=== PATIENT | female | born 1950 | race Caucasian/White ===

== ENCOUNTER 2021-09-06 07:46 | Emergency (ER) | payer MEDICARE, OTHER ==
[~2021-09-06] VITALS: Ht 167 cm; Wt 83.9 kg
[2021-09-06] MEDS ORDERED: ROSU40TA23 (08:07)
[2021-09-06] MEDS ORDERED: METF-399 (08:07)
[2021-09-06] MEDS ORDERED: GLIM1TAB4 (08:07)
--- NOTE | 2021-09-06 08:27 | ED Back Pain ---
General Chief Complaint: Back Problems Stated Complaint: BACK PAIN Nursing Triage Note: RIGHT SIDED FLANK PAIN THAT STARTED THIS AM. Source of Information: Patient Exam Limitations: No Limitations (DARIEN MEYER MED STUDENT) History of Present Illness Date Seen by Provider: Sep 06, 2021 Time Seen by Provider: 08:15 Initial Comments Mrs. Holley is a 71yo female with PMH of DM that presents to ED today due to R side back pain. She states that yesterday morning when she got up she noticed she had the pain in her back. It has been intermittent and experienced it in the morning, and then at 1500 and 1900 as well. This morning she was experiencing it again and decided to come in. Rates the pain a 10, and sharp that radiates down the L side of her back and into her groin. Deneis any trauma or strain. She also complains of some incontinence when trying to walk to the bathroom, although denies dysuria or hematuria. 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 no nausea/vomiting. She has only tried some tylenol which hasnt helped much. Pain is a lot worse with moving and positioning. She states she has never had pain like this before, denies history of kidney stones. Denies smoking, drinking, drugs. States she is allergic to penecillin and hydrocodone. 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 (BINA PARRA MD) Allergies and Home Medications Allergies Coded Allergies: Penicillins (Verified Allergy, Severe, HIVES, 09/06/21) hydrocodone (Verified Adverse Reaction, Unknown, UNABLE TO SLEEP, 09/06/21) Patient Home Medication List Home Medication List Reviewed: Yes (BINA PARRA MD) Glimepiride (Glimepiride) 1 Mg Tablet, (Reported) Entered as Reported by: RADHA ESTEVES on 09/06/21806 Last Action: New Order Metformin HCl (Metformin HCl) 1,000 Mg Tablet, (Reported) Entered as Reported by: RADHA ESTEVES on 09/06/21806 Last Action: New Order Rosuvastatin Calcium (Rosuvastatin Calcium) 40 Mg Tablet, (Reported) Entered as Reported by: RADHA ESTEVES on 3/26/22 0807 Last Action: New Order Review of Systems Constitutional: No chills, No fever EENTM: No hearing loss, No vision loss Respiratory: No cough, No short of breath, No wheezing Cardiovascular: No chest pain, No edema, No palpitations Gastrointestinal: No abdominal pain, No constipation, No diarrhea, No melena, No nausea, No vomiting Genitourinary: No dysuria, No hematuria; incontinence; No pain Musculoskeletal: back pain (R side from kidney area down to lower lumbar), joint pain, other (R groin pain) Skin: No lesions, No rash Psychiatric/Neurological: Denies Headache, Denies Numbness (DARIEN MEYER STUDENT) Past Nmrcgjo-Wscchv-Fbmolw Hx Patient Social History Smoking Status: Never a Smoker Substance use?: No Alcohol Use?: No (DARIEN MEYER) Tobacco Use?: No Use of E-Cig and/or Vaping dev: No Substance use?: No Alcohol Use?: No (BINA PARRA MD) Past Medical History Surgeries: Yes Abdominal (Laparoscopic for treatment of endometriosis), CABG, Section, Orthopedic (Hip, shoulder) Respiratory: No Cardiac: Yes Coronary Artery Disease Neurological: No : No Reproductive Disorders: Yes Female Reproductive Disorders: Endometriosis Genitourinary: No Gastrointestinal: No Musculoskeletal: No Endocrine: Yes Diabetes, Non-Insulin dep HEENT: No Cancer: No Psychosocial: No Integumentary: No (BINA PARRA MD) Physical Exam Vital Signs Vital Signs - First Documented 09/06/21 07:55 Temp 36.4 Pulse 67 Resp 16 B/P (MAP) 199/106 (137) Pulse Ox 95 O2 Delivery Room Air (BINA PARRA MD) Vital Signs Capillary Refill : Less Than 3 Seconds (DARIEN MEYER) Height, Weight, BMI Height: '" Weight: lbs. oz. kg; 30.00 BMI Method: General Appearance: WD/WN, Other (appears uncomfortable ) HEENT: PERRL/EOMI, Pharynx Normal, Moist Mucous Membranes Cardiovascular: Regular Rate, Rhythm, No Edema, No Murmur, Normal Peripheral Pulses Respiratory: Chest Non Tender, Lungs Clear, Normal Breath Sounds Peripheral Pulses: 2+ Radial Pulses (R), 2+ Radial Pulses (L) Gastrointestinal: Normal Bowel Sounds, Non Tender, Soft Back: No Vertebral Tenderness, CVA Tenderness (R) Extremity: Non Tender, No Calf Tenderness, No Pedal Edema Neurologic/Psychiatric: Alert, Oriented x3, No Motor/Sensory Deficits Skin: Normal Color, Warm/Dry (BETSY,DARIEN MED STUDENT) Progress/Results/Core Measures Results/Orders Lab Results Laboratory Tests Test 09/06/21 08:35 09/06/21 08:40 Range/Units Urine Color YELLOW Urine Clarity CLEAR Urine pH 5.5 5-9 Urine Specific [place] 1.025 H 1.016-1.022 Urine Protein NEGATIVE NEGATIVE Urine Glucose (UA) NEGATIVE NEGATIVE Urine Ketones NEGATIVE NEGATIVE Urine Nitrite NEGATIVE NEGATIVE Urine Bilirubin NEGATIVE NEGATIVE Urine Urobilinogen 0.2 < = 1.0 MG/DL Urine Leukocyte Esterase NEGATIVE NEGATIVE Urine RBC (Auto) TRACE-I H NEGATIVE Urine RBC NONE /HPF Urine WBC RARE /HPF Urine Squamous Epithelial Cells 0-2 /HPF Urine Crystals NONE /LPF Urine Bacteria TRACE /HPF Urine Casts NONE /LPF Urine Mucus NEGATIVE /LPF Urine Culture Indicated NO White Blood Count 7.0 4.3-11.0 10^3/uL Red Blood Count 4.81 3.80-5.11 10^6/uL Hemoglobin 14.1 11.5-16.0 g/dL Hematocrit 42 35-52 % Mean Corpuscular Volume 87 80-99 fL Mean Corpuscular Hemoglobin 29 25-34 pg Mean Corpuscular Hemoglobin Concent 34 32-36 g/dL Red Cell Distribution Width 13.9 10.0-14.5 % Platelet Count 278 130-400 10^3/uL Mean Platelet Volume 9.6 9.0-12.2 fL Immature Granulocyte % (Auto) 0 % Neutrophils (%) (Auto) 62 42-75 % Lymphocytes (%) (Auto) 27 12-44 % Monocytes (%) (Auto) 9 0-12 % Eosinophils (%) (Auto) 2 0-10 % Basophils (%) (Auto) 1 0-10 % Neutrophils # (Auto) 4.3 1.8-7.8 10^3/uL Lymphocytes # (Auto) 1.9 1.0-4.0 10^3/uL Monocytes # (Auto) 0.6 0.0-1.0 10^3/uL Eosinophils # (Auto) 0.2 0.0-0.3 10^3/uL Basophils # (Auto) 0.1 0.0-0.1 10^3/uL Immature Granulocyte # (Auto) 0.0 0.0-0.1 10^3/uL Sodium Level 140 135-145 MMOL/L Potassium Level 4.0 3.6-5.0 MMOL/L Chloride Level 107 98-107 MMOL/L Carbon Dioxide Level 22 21-32 MMOL/L Anion Gap 11 5-14 MMOL/L Blood Urea Nitrogen 13 7-18 MG/DL Creatinine 0.68 0.60-1.30 MG/DL Estimat Glomerular Filtration Rate 94 BUN/Creatinine Ratio 19 Glucose Level 143 H 70-105 MG/DL Calcium Level 10.2 H 8.5-10.1 MG/DL Corrected Calcium 10.0 8.5-10.1 MG/DL Total Bilirubin 0.5 0.1-1.0 MG/DL Aspartate Amino Transf (AST/SGOT) 19 5-34 U/L Alanine Aminotransferase (ALT/SGPT) 24 0-55 U/L Alkaline Phosphatase 70 40-136 U/L C-Reactive Protein High Sensitivity 0.09 0.00-0.50 MG/DL Total Protein 7.4 6.4-8.2 GM/DL Albumin 4.2 3.2-4.5 GM/DL (BINA PARRA MD) My Orders Orders - BINA PARRA MD Ed Iv/Invasive Line Start (09/06/21 08:22) Lactated Ringers (Lr 1000 Ml Iv Solution (09/06/21 08:30) Cbc With Automated Diff (09/06/21 08:22) Comprehensive Metabolic Panel (09/06/21 08:22) Hs C Reactive Protein (09/06/21 08:22) Ua Culture If Indicated (09/06/21 08:22) Ct Abd/Pelvis Wo(Kidney Stone) (09/06/21 09:18) Ketorolac Injection (Toradol Injection) (09/06/21 11:45) Ct Angio Abdomen/Pelv W (09/06/21 12:54) Iohexol Injection (Omnipaque 350 Mg/Ml 1 (09/06/21 13:30) Ns (Ivpb) (Sodium Chloride 0.9% Ivpb Bag (09/06/21 13:30) Sodium Chloride Flush (Catheter Flush Sy (09/06/21 13:30) (BINA PARRA MD) Medications Given in ED (BINA PARRA MD) Vital Signs/I&O 09/06/21 09/06/21 07:55 14:54 Temp 36.4 Pulse 67 75 Resp 16 16 B/P (MAP) 199/106 (137) 173/76 Pulse Ox 95 98 O2 Delivery Room Air Room Air (BINA PARRA MD) Blood Pressure Mean: 137 Progress Progress Note : Progress Note Patient was hydrated with IV fluids during work-up. She declined pain medication initially. On reevaluation she was hurting so much that she could not even sit up without significant help. She was given Toradol. CT scan was obtained revealing no significant abnormalities. We discussed further options. After again reviewing her medical history, she was offered a CT angiogram of the abdomen and pelvis to evaluate for possible vascular pathology of the bowel. CT angiogram revealed no vascular compromise or ischemia of the bowel. Pain improved significantly with the Toradol. See discharge instructions for further discussion. (BINA PARRA MD) Diagnostic Imaging Diagonstic Imaging: CT Plain Films/CT/US/NM/MRI: abdomen, pelvis Comments CT abdomen and pelvis without contrast viewed by me and report reviewed. See report below: NAME: MALCOM HOLLEY [facility] REC#: [id number] PT STATUS: REG ER : 1950 PHYSICIAN: BINA PARRA MD ADMIT DATE: 09/06/21/ER Signed Date of Exam:09/06/21 CT ABD/PELVIS WO(KIDNEY STONE) PROCEDURE: CT urinary tract, rule out kidney stone. TECHNIQUE: Multiple contiguous axial images were obtained through the abdomen and pelvis without the use of intravenous contrast. Auto Exposure Controls were utilized during the CT exam to meet ALARA standards for radiation dose reduction. INDICATION: 71-year-old female, right flank pain. CORRELATION STUDY: None. FINDINGS: LOWER THORAX: Several faint sub-5 mm nodular densities are present. Heart size is enlarged with poststernotomy change. Small hiatal hernia. LIVER: Small subcentimeter low-density nodule central left hepatic lobe incompletely characterized, favors probable cyst. GALLBLADDER: Mildly distended, otherwise unremarkable. No bile ductal dilatation. SPLEEN: Unremarkable. PANCREAS: Unremarkable. ADRENAL GLANDS: Unremarkable. KIDNEYS: Normal configuration. No calcification or obstruction. ABDOMINAL AORTA: Moderate wall calcification, slight ectasia up to 2.4 cm. GASTROINTESTINAL TRACT: No small bowel obstruction. The appendix appears slightly folded on itself projecting posterior to the cecum, the limited visualized portions appearing unremarkable. No abdominal ascites and/or free air. A few distal colon diverticula without evidence of acute diverticulitis. URINARY BLADDER: Mildly distended, but otherwise unremarkable. REPRODUCTIVE: A few calcifications of the uterus. Uterus is mildly enlarged. No definitive abnormal adnexal mass. No pelvic fluid. OSSEOUS STRUCTURES: Advanced multilevel degenerative changes are present. Various degrees of spinal canal and foraminal narrowing. OTHER: None. IMPRESSION: 1. Negative for acute abnormality of the abdomen or pelvis. No evidence for nephroureterolithiasis or obstructive uropathy. Limited visualized portion of the appendix unremarkable. Dictated by: Dictated on workstation # [id number] Dict: 09/06/21 0937 Trans: 09/06/21 11[address] [facility] [id number] Interpreted by: SOHA GARCIA DO Electronically signed by: SOHA GARCIA DO 09/06/21 1101 Diagonstic Imaging: CT Plain Films/CT/US/NM/MRI: abdomen, pelvis Comments CT angiogram report reviewed. See report below: NAME: MALCOM HOLLEY [facility] REC#: [id number] PT STATUS: REG ER : 1950 PHYSICIAN: BINA PARRA MD ADMIT DATE: 09/06/21/ER Signed Date of Exam:09/06/21 CT ANGIO ABDOMEN/PELV W PROCEDURE: CT Angio Abdomen/Pelvis with. TECHNIQUE: Multiple contiguous axial images were obtained through the abdomen and pelvis after the uneventful bolus administration of intravenous contrast. Sagittal and coronal MIP reconstructions with then performed. All CT scans use one or more of the following dose optimizing techniques: automated exposure control, MA and/or KvP adjustment based on patient size and exam type or iterative reconstruction. INDICATION: Right-sided flank pain. Follow-up. COMPARISON: CT abdomen and pelvis without contrast performed earlier this same date. FINDINGS: The heart is unremarkable. Dependent atelectasis is noted. No evidence of aneurysm or dissection in the abdominal aorta. There is atherosclerotic plaque present. No luminal stenosis is seen. The celiac trunk, SMA, JIM, and renal arteries are patent. The bilateral common, external, and internal iliac arteries are patent without aneurysm or dissection. No periaortic inflammatory changes are seen. The liver, spleen, pancreas, adrenal glands, and kidneys have a normal appearance. The gallbladder is unremarkable. There is no pathologically enlarged mesenteric or retroperitoneal adenopathy. The bowel loops are nondilated. The appendix is visualized in the right lower quadrant and is unremarkable. There is no free fluid or free air. No acute osseous abnormalities. Ureters and bladder are normal. There is no free air, loculated collection, or adenopathy in the pelvis. IMPRESSION: 1. No evidence of aneurysm or dissection in the abdominal aorta. 2. No acute abnormalities in the abdomen and pelvis. No bowel obstruction, free fluid, or free air. Dictated by: Dictated on workstation # [id number] Dict: 09/06/21 1359 Trans: 09/06/21 [address] [facility] [id number] Interpreted by: ANGI SAINZ DO Electronically signed by: ANGI SAINZ DO 09/06/21 1421 (BINA PARRA MD) Departure Impression Primary Impression: Right sided abdominal pain Disposition: 01 HOME, SELF-CARE Condition: Improved Departure-Patient Inst. Decision time for Depature: 12:44 (BINA PARRA MD) Referrals: NO,LOCAL PHYSICIAN (PCP/Family) Primary Care Physician Patient Instructions: Abdominal Pain, Adult ED Add. Discharge Instructions: Your work-up in the emergency room was unremarkable. No specific cause for your pain was identified. Possible causes would include mesenteric adenitis (inflammation of lymph nodes around your intestines), muscle strain, or generalized inflammation of your bowel. You may take ibuprofen up to 600 mg every 6 hours to treat the pain. Add Tylenol (acetaminophen) up to 1000 mg every 6 hours as needed for additional pain relief. Try to adhere to a clear liquid diet for the remainder of today to help your bowels rest. Please return to the emergency room if you have worsening symptoms despite following these instructions, especially if you develop fever, vomiting, or escalating pain not controlled by [id number] medications. If you are still having symptoms on Wednesday, please follow-up with your primary care provider. All discharge instructions reviewed with patient and/or family. Voiced und erstanding. Medical Student Attestation and Attending Note: I have personally interviewed and examined this patient along with Darien Meyer, MS 4. I have reviewed student documentation including history, physical, and assessments. I agree with the documentation except where otherwise noted. Exam: General: Alert, oriented, mild acute distress, well developed HEENT: Normocephalic and atraumatic Heart: Regular rate and rhythm without murmur Lungs: Clear to auscultation bilaterally with normal effort Abdomen: Soft, tenderness to percussion and palpation throughout the right abdomen, nondistended, normal bowel sounds Neuropsych: Alert, oriented, no focal deficits Skin: Warm and dry without rashes (BINA PARRA MD) DARIEN MEYER MED STUDENT Sep 06, 2021 08:27 BINA PARRA MD Sep 06, 2021 12:48
[2021-09-06] MEDS ORDERED: LACTATED RINGERS 1,000 ML IV ONE (08:30)
[2021-09-06 08:41] LABS: BILIRUBIN,URINE NEGATIVE (NEGATIVE); CLARITY,URINE CLEAR; COLOR,URINE YELLOW; GLUCOSE, URINE (UA) NEGATIVE (NEGATIVE); KETONES,URINE NEGATIVE (NEGATIVE); LEUKOCYTE ESTERASE ,URINE NEGATIVE (NEGATIVE); NITRITE,URINE NEGATIVE (NEGATIVE); PH,URINE 5.5 (5-9); PROTEIN,URINE NEGATIVE (NEGATIVE)
[2021-09-06 08:47] LABS: BASOPHILS # (AUTO) 0.1 10^3/uL (0.0-0.1); BASOPHILS % (AUTO) 1 % (0-10); EOSINOPHILS # (AUTO) 0.2 10^3/uL (0.0-0.3); EOSINOPHILS % (AUTO) 2 % (0-10); HEMATOCRIT 42 % (35-52); HEMOGLOBIN 14.1 g/dL (11.5-16.0); LYMPHOCYTES # (AUTO) 1.9 10^3/uL (1.0-4.0); LYMPHOCYTES % (AUTO) 27 % (12-44); MEAN CORPUSCULAR HEMOGLOBIN 29 pg (25-34); MEAN CORPUSCULAR HGB CONC 34 g/dL (32-36); MEAN CORPUSCULAR VOLUME 87 fL (80-99); MEAN PLATELET VOLUME 9.6 fL (9.0-12.2); MONOCYTES # (AUTO) 0.6 10^3/uL (0.0-1.0); MONOCYTES % (AUTO) 9 % (0-12); NEUTROPHILS # (AUTO) 4.3 10^3/uL (1.8-7.8); NEUTROPHILS % (AUTO) 62 % (42-75); PLATELET COUNT 278 10^3/uL (130-400)
[2021-09-06 08:55] LABS: ALBUMIN 4.2 GM/DL (3.2-4.5)
[2021-09-06 08:56] LABS: CALCIUM 10.2 MG/DL (8.5-10.1)
[2021-09-06 08:56] LABS: BACTERIA,URINE TRACE /HPF; SQUAMOUS EPITHELIAL CELL,UR 0-2 /HPF; WBC,URINE RARE /HPF
[2021-09-06 08:58] LABS: TOTAL PROTEIN 7.4 GM/DL (6.4-8.2)
[2021-09-06 08:59] LABS: BILIRUBIN,TOTAL 0.5 MG/DL (0.1-1.0)
[2021-09-06 09:01] LABS: CREATININE SERUM 0.68 MG/DL (0.60-1.30)
--- NOTE | 2021-09-06 09:52 | Diagnostic Imaging Report ---
PROCEDURE: CT urinary tract, rule out kidney stone. TECHNIQUE: Multiple contiguous axial images were obtained through the abdomen and pelvis without the use of intravenous contrast. Auto Exposure Controls were utilized during the CT exam to meet ALARA standards for radiation dose reduction. INDICATION: 71-year-old female, right flank pain. CORRELATION STUDY: None. FINDINGS: LOWER THORAX: Several faint sub-5 mm nodular densities are present. Heart size is enlarged with poststernotomy change. Small hiatal hernia. LIVER: Small subcentimeter low-density nodule central left hepatic lobe incompletely characterized, favors probable cyst. GALLBLADDER: Mildly distended, otherwise unremarkable. No bile ductal dilatation. SPLEEN: Unremarkable. PANCREAS: Unremarkable. ADRENAL GLANDS: Unremarkable. KIDNEYS: Normal configuration. No calcification or obstruction. ABDOMINAL AORTA: Moderate wall calcification, slight ectasia up to 2.4 cm. GASTROINTESTINAL TRACT: No small bowel obstruction. The appendix appears slightly folded on itself projecting posterior to the cecum, the limited visualized portions appearing unremarkable. No abdominal ascites and/or free air. A few distal colon diverticula without evidence of acute diverticulitis. URINARY BLADDER: Mildly distended, but otherwise unremarkable. REPRODUCTIVE: A few calcifications of the uterus. Uterus is mildly enlarged. No definitive abnormal adnexal mass. No pelvic fluid. OSSEOUS STRUCTURES: Advanced multilevel degenerative changes are present. Various degrees of spinal canal and foraminal narrowing. OTHER: None. IMPRESSION: 1. Negative for acute abnormality of the abdomen or pelvis. No evidence for nephroureterolithiasis or obstructive uropathy. Limited visualized portion of the appendix unremarkable. Dictated by: Dictated on workstation # [id number]
[2021-09-06] MEDS ORDERED: KETOROLAC 30 MG/ML VIAL IVP ONE (11:45)
[2021-09-06] MEDS ORDERED: CATHETER FLUSH 10 ML SYR IV PRN (13:30)
[2021-09-06] MEDS ORDERED: IOHEXOL 350 MG/ML 100 ML (OMNIPAQUE 350) VIAL IV ONE (13:30)
[2021-09-06] MEDS ORDERED: NS 100 ML (IVPB) BAG IV ONE (13:30)
--- NOTE | 2021-09-06 14:16 | Diagnostic Imaging Report ---
PROCEDURE: CT Angio Abdomen/Pelvis with. TECHNIQUE: Multiple contiguous axial images were obtained through the abdomen and pelvis after the uneventful bolus administration of intravenous contrast. Sagittal and coronal MIP reconstructions with then performed. All CT scans use one or more of the following dose optimizing techniques: automated exposure control, MA and/or KvP adjustment based on patient size and exam type or iterative reconstruction. INDICATION: Right-sided flank pain. Follow-up. COMPARISON: CT abdomen and pelvis without contrast performed earlier this same date. FINDINGS: The heart is unremarkable. Dependent atelectasis is noted. No evidence of aneurysm or dissection in the abdominal aorta. There is atherosclerotic plaque present. No luminal stenosis is seen. The celiac trunk, SMA, JIM, and renal arteries are patent. The bilateral common, external, and internal iliac arteries are patent without aneurysm or dissection. No periaortic inflammatory changes are seen. The liver, spleen, pancreas, adrenal glands, and kidneys have a normal appearance. The gallbladder is unremarkable. There is no pathologically enlarged mesenteric or retroperitoneal adenopathy. The bowel loops are nondilated. The appendix is visualized in the right lower quadrant and is unremarkable. There is no free fluid or free air. No acute osseous abnormalities. Ureters and bladder are normal. There is no free air, loculated collection, or adenopathy in the pelvis. IMPRESSION: 1. No evidence of aneurysm or dissection in the abdominal aorta. 2. No acute abnormalities in the abdomen and pelvis. No bowel obstruction, free fluid, or free air. Dictated by: Dictated on workstation # [id number]
[2021-09-06 14:54] VITALS: BP 173/76
== END 2021-09-06 14:54 | disposition home or self-care (01) ==
LOC: ER 07:49
DX: R10.31 Right lower quadrant pain (principal)
CPT/HCPCS: 36415; 74174; 74176; 80053; 81000; 85025; 86141